=== PATIENT | male | born 1945 | race Caucasian/White ===

== ENCOUNTER 2016-12-15 15:05 | Emergency (ER) | payer OTHER, MEDICARE ==
[~2016-12-15 15:05] MED LIST: Ascorbic Acid,Ester- PO; Colace PO; Dilaudid PO; Dulcolax PO; Ecotrin PO; Feosol PO; Folvite PO; LIDODERM 5% P1 PATCH TD; Lexapro PO; MS Contin,Oramorph S PO; Miralax, Glycolax PO; Oscal 500 w/Vitamin PO; Remove Lidoderm Patc TD; Senokot S,Pericolace PO; TYLENOL REGULA325 MG PO; Theragran PO
[2016-12-15 15:23] LABS: EOSINOPHIL COUNT 0.4 K/uL (0-0.3); HEMATOCRIT 36.4 % (38.0-50.0); IMMATURE GRANULOCYTE (%) 1.1 % (0.0-0.7); IMMATURE GRANULOCYTE COUNT 0.1 K/uL; INSTRUMENT ABS NEUTROPHIL CT 2.4 K/uL; MCH 32.9 PG (29.0-34.0); MCHC 34.9 G/DL (30.0-36.0); MCV 94.3 FL (86-99); MEAN PLAT.VOLUME 9.6 uM^3 (9.0-12.4); MONOCYTE (%) 10.2 % (3-12); MONOCYTE COUNT 0.6 K/uL (0-0.8); NEUTROPHIL (%) 43.4 % (45-76); NEUTROPHIL COUNT 2.4 K/uL (1.8-6.4); PLATELET COUNT 239 K/uL (156-360); RBC DIS.WIDTH-CV 12.4 % (11.8-14.6); RBC DIS.WIDTH-SD 43.2 % (39-53); RED BLOOD COUNT 3.86 M/uL (4.00-5.50); WHITE BLOOD COUNT 5.4 K/uL (4.1-10.2)
[2016-12-15 15:32] LABS: AMYLASE 46 IU/L (1-118); CHLORIDE 106 mEq/L (99-109); POTASSIUM 3.8 mEq/L (3.7-5.4); SODIUM 139 mEq/L (136-147)
[2016-12-15 15:34] LABS: GLUCOSE 95 mg/dL (70-99)
[2016-12-15 15:35] LABS: ANION GAP 12 MEQ/L (2-14)
[2016-12-15 15:37] LABS: SERUM ETHYL ALCOHOL < 10 mg/dL
[2016-12-15 15:38] LABS: GFR ESTIMATE (CALCULATED) > 59 mL/min/
[2016-12-15 15:39] LABS: UREA NITROGEN (BUN) 18 mg/dL (9-23)
[2016-12-15 15:41] LABS: LIPASE 47 U/L (1.0-51.0)
[2016-12-15 15:47] LABS: TROP-I INTERPRETATION NEGATIVE; TROPONIN-I < 0.01 ng/mL (0.0-0.30)
== END 2016-12-15 17:24 | disposition home or self-care (01) ==
LOC: TRA 15:05
PROVIDERS: Emergency Medicine
PROC: 0HQ0XZZ Repair Scalp Skin, External Approach (ICD-10-PCS; principal; 2016-12-15)
DX: S06.0X1A Concussion with loss of consciousness of 30 minutes or less, initial encounter (principal); S01.01XA Laceration without foreign body of scalp, initial encounter; W11.XXXA Fall on and from ladder, initial encounter; Y93.H9 Activity, other involving exterior property and land maintenance, building and construction; F41.9 Anxiety disorder, unspecified; Z96.641 Presence of right artificial hip joint
CPT/HCPCS: 70450; 71010; 72125; 72170; 80048; 81003; 82150; 83690; 84484; 85025; 86850; 86900; 86901; 93005; 99281; 99285; G0480